=== PATIENT | male | born 1985 | race Caucasian/White ===

== ENCOUNTER 2016-10-10 09:02 | Emergency (ER) | payer OTHER ==
[2016-10-10 09:11] VITALS: BP 127/78; PULSE 70; RESP 16; TEMP 98.1; O2SAT 100
[2016-10-10] MEDS ORDERED: Lidocaine 5% Patch TD STA (09:45)
--- NOTE | 2016-10-10 09:45 | C.PDOC ---
History Of Present Illness 31 year old male presents to the ED with complaints of mid back pain greater on the right then the left side that began four hours prior to arrival. He states pain is exacerbated by movement and deep breathing. Patient states he awoke with symptoms that resolve with rest. He denies taking pain medications, trauma , or a history of chronic back pain. R>L MID BACK PAIN X 4 HOURS. PS AWOKE W SX. WORSE W MOVEMENT, DEEP BREATHING. RESOLVES W REST. NO PAIN MEDS TRIED. DENIES TRAUMA. DENIES HO CHRONIC BACK PAIN EXAM MILD DIST NONTOXIC BACK +SPASM W LOCAL TEND R MID BACK W REPRODUC PAIN. LIMITED ROM DUE TO PAIN. NO SPINAL TEND LUNGS CTA B/L NO WR/R NEURO INTACT SKIN NEG Time Seen by Provider: 10/10/16 09:30 Chief Complaint (Nursing): Chest Pain History Per: Patient History/Exam Limitations: no limitations Onset/Duration Of Symptoms: Hrs Current Symptoms Are (Timing): Still Present Quality Of Discomfort: "Pain" Previous Symptoms: denies: Back Pain, Chronic Pain Associated Symptoms: None Exacerbating Factor(s): Movement, Other (deep breathing ) Recent travel outside of the [place]: No Past Medical History Reviewed: Historical Data, Nursing Documentation, Vital Signs Vital Signs: Last Vital Signs Temp 98.1 F 10/10/16 09:05 Pulse 70 10/10/16 09:05 Resp 16 10/10/16 09:05 BP 127/78 10/10/16 09:05 Pulse Ox 100 10/10/16 10:25 - [facility] Procedures REMOVAL SUPERFIC FB EYE (09/25/13) Family History: States: Unknown Family Hx - Social History Hx Tobacco Use: Yes Hx Alcohol Use: No Hx Substance Use: No - Immunization History Hx Tetanus Toxoid Vaccination: Yes Hx Influenza Vaccination: No Hx Pneumococcal Vaccination: No Review Of Systems Constitutional: Negative for: Fever, Chills Cardiovascular: Negative for: Chest Pain, Palpitations Respiratory: Negative for: Cough, Shortness of Breath Gastrointestinal: Negative for: Nausea, Vomiting, Abdominal Pain, Diarrhea Musculoskeletal: Positive for: Back Pain (mid-back pain ) Physical Exam - Physical Exam Appears: Non-toxic, In Acute Distress (mild acute distress ) Skin: Warm, Dry Head: Atraumatic Eye(s): bilateral: Normal Inspection, PERRL, EOMI Oral Mucosa: Moist Neck: Supple Chest: Symmetrical, No Deformity Cardiovascular: Rhythm Regular Respiratory: Normal Breath Sounds (clear to ausculation bilaterally), No Rales, No Rhonchi, No Wheezing Back: No Vertebral Tenderness, Decreased ROM (limited ROM due to pain ), Muscle Spasm, No Paraspinal Tenderness, Other (localized tenderness to the right mid- back with reproducable pain. ) Extremity: Normal ROM, No Tenderness Neurological/Psych: Oriented x3, Normal Speech, Normal Cognition, Normal Cranial Nerves, Normal Motor, Normal Sensation, Normal Reflexes ED Course And Treatment ECG: Interpreted By Me ECG Rhythm: Sinus Rhythm ECG Interpretation: Normal Rate From EC O2 Sat by Pulse Oximetry: 100 (room air ) Pulse Ox Interpretation: Normal Progress - Re-Evaluation Re-evaluation Note: 10/10/16 10:53 FEELS BETTER ROM IMPROVED - Data Reviewed Data Reviewed: EKG, Old records Disposition Counseled Patient/Family Regarding: Diagnosis, Need For Followup, Rx Given - Disposition Referrals: [facility] [Outside] [facility] [Outside] Disposition: HOME/ ROUTINE Disposition Time: 10:54 Condition: IMPROVED Prescriptions: Cyclobenzaprine [Flexeril] 10 mg PO TID #15 tab Ibuprofen [Motrin] 600 mg PO Q6 #30 tab Lidocaine 5% [Lidoderm] 1 ea TD PRN PRN #10 patch PRN Reason: Pain, Moderate (4-7) Instructions: Back Pain (ED) Forms: Work Excuse Print Language: PASHTO - Clinical Impression Clinical Impression: Back pain - Scribe Statement The provider has reviewed the documentation as recorded by the Scribjosep Noble All medical record entries made by the Vickiibjosep were at my direction and personally dictated by me. I have reviewed the chart and agree that the record accurately reflects my personal performance of the history, physical exam, medical decision making, and the department course for this patient. I have also personally directed, reviewed, and agree with the discharge instructions and disposition.
[2016-10-10] MEDS ORDERED: Lidocaine 5% Patch TD ONE (09:49)
== END 2016-10-10 11:00 | disposition home or self-care (01) ==
LOC: C.ER 09:02
DX: M54.6 Pain in thoracic spine (principal)
CPT/HCPCS: 96372; 99284; J1885

== ENCOUNTER 2016-10-15 12:16 | Emergency (ER) | payer OTHER ==
[2016-10-15 12:43] VITALS: BP 146/80; PULSE 71; RESP 18; TEMP 97.9; O2SAT 98
[2016-10-15] MEDS ORDERED: Erythromycin 0.5% Ophth Oint 1 APPLIC/3.5 G OD STA (12:46)
--- NOTE | 2016-10-15 12:51 | C.PDOC ---
History Of Present Illness 31 year old male complains of right eyelid redness, swelling and irritation for 2 days. He additionally complains of low right back pain which is aching and non -radiating. Patient states he was heavy lifting at work yesterday which aggravated pain. Patient states he has been taking Advil for pain without relief. Denies any direct injury, urinary symptoms, numbness, weakness, abdominal pain. In regards to eye complaint, denies any visual changes or eye injury, does not wear glasses or contacts Time Seen by Provider: 10/15/16 12:36 Chief Complaint (Nursing): Abdominal Pain History Per: Patient History/Exam Limitations: no limitations Onset/Duration Of Symptoms: Days Current Symptoms Are (Timing): Still Present Severity: Moderate Recent travel outside of the [place]: No Past Medical History Reviewed: Historical Data, Nursing Documentation, Vital Signs Vital Signs: Last Vital Signs Temp 97.9 F 10/15/16 12:42 Pulse 71 10/15/16 12:42 Resp 18 10/15/16 12:42 BP 146/80 10/15/16 12:42 Pulse Ox 98 10/15/16 13:14 - Medical History PMH: No Chronic Diseases Surgical History: No Surg Hx - [facility] Procedures REMOVAL SUPERFIC FB EYE (09/25/13) Family History: States: Unknown Family Hx - Social History Hx Tobacco Use: Yes Hx Alcohol Use: No Hx Substance Use: No - Immunization History Hx Tetanus Toxoid Vaccination: Yes Hx Influenza Vaccination: No Hx Pneumococcal Vaccination: No Review Of Systems Constitutional: Negative for: Fever, Chills Eyes: Positive for: Other (right eyelid redness, swelling and irritation). Negative for: Vision Change Cardiovascular: Negative for: Chest Pain Respiratory: Negative for: Cough Gastrointestinal: Negative for: Abdominal Pain Genitourinary: Negative for: Dysuria, Frequency, Hematuria, Scrotal Pain Musculoskeletal: Positive for: Back Pain. Negative for: Leg Pain Skin: Negative for: Rash Neurological: Negative for: Weakness, Numbness, Headache, Dizziness Physical Exam - Physical Exam Appears: Non-toxic, No Acute Distress Skin: Warm, Dry, No Rash Head: Atraumatic, Normacephalic Eye(s): bilateral: PERRL, EOMI, right: Other (upper eyelid with erythematous nodule to mid eyelid margin, no purulent discharge), left: Normal Inspection Oral Mucosa: Moist Neck: Normal, Normal ROM, Supple Chest: Symmetrical Cardiovascular: Rhythm Regular Respiratory: Normal Breath Sounds, No Rales, No Rhonchi, No Wheezing Back: Normal Inspection (no rash, no bulging), No Vertebral Tenderness, No Decreased ROM, Paraspinal Tenderness (right lumbar) Extremity: Bilateral: Atraumatic, Normal Color And Temperature, Normal ROM Neurological/Psych: Oriented x3, Normal Speech, Normal Motor, Normal Sensation Gait: Steady ED Course And Treatment O2 Sat by Pulse Oximetry: 98 (room air) Pulse Ox Interpretation: Normal Medical Decision Making Medical Decision Making: Patient with right eyelid pain and swelling and exam consistent with hordeolum. Erythromycin ointment applied. Visual acuity obtained and WNL, no signs of injury or foreign body. Patient also has second complaint of back pain, stating he took the medications prescribed during last visit and continues to have pain. He requesting few days off from work. Toradol, Tylenol, and Valium ordered. Patient was advised to follow up with clinic or PCP. Disposition Counseled Patient/Family Regarding: Diagnosis, Need For Followup, Rx Given - Disposition Referrals: [facility] [Outside] [facility] [Outside] [facility] [Outside] Disposition: HOME/ ROUTINE Disposition Time: 13:00 Condition: IMPROVED Additional Instructions: Follow up with your primary medical doctor or clinic in 2-5 days for further evaluation. Apply eye ointment twice daily for one week. Take medications as prescribed and as needed for any back pain. Return to the emergency department at any time if symptoms worsen. You may call [facility] service for any assistance [phone]. Prescriptions: traMADol/Acetaminophen [Ultracet 325 MG-37.5 MG] 1 tab PO Q8 #15 tab Instructions: Karen (ED), Acute Low Back Pain (DC) Forms: [facility] (Czech), Work Excuse Print Language: [place] - POA Present On Arrival: None - Clinical Impression Clinical Impression: Hordeolum externum right upper eyelid, Back pain - PA / STRAPPER / Resident Statement MD/DO has reviewed & agrees with the documentation as recorded. - Scribe Statement The provider has reviewed the documentation as recorded by the Vickiibjosep Eli All medical record entries made by the Scribe were at my direction and personally dictated by me. I have reviewed the chart and agree that the record accurately reflects my personal performance of the history, physical exam, medical decision making, and the department course for this patient. I have also personally directed, reviewed, and agree with the discharge instructions and disposition.
[2016-10-15] MEDS ORDERED: Erythromycin 0.5% Ophth Oint 1 APPLIC/3.5 G ONE (12:53)
== END 2016-10-15 13:28 | disposition home or self-care (01) ==
LOC: C.ER 12:16
DX: H00.011 Hordeolum externum right upper eyelid (principal); M54.9 Dorsalgia, unspecified
CPT/HCPCS: 96372; 99285; J1885

== ENCOUNTER 2017-05-24 11:56 | Emergency (ER) | payer OTHER ==
[2017-05-24 12:01] VITALS: RESP 18
--- NOTE | 2017-05-24 12:13 | C.PDOC ---
History Of Present Illness 31 yo male c/o yellow penile discharge associated with dysuria for 3 days. Pt notes he had unprotected intercourse on Tuesday with a new partner. No h/o STDs. Denies testicular pain, abdominal pain, fever, back pain or other complains. Time Seen by Provider: 05/24/17 12:02 Chief Complaint (Nursing): Male Genitourinary History Per: Patient History/Exam Limitations: no limitations Onset/Duration Of Symptoms: Days Current Symptoms Are (Timing): Still Present Past Medical History Reviewed: Historical Data, Nursing Documentation, Vital Signs Vital Signs: Last Vital Signs Temp 98 F 05/24/17 13:39 Pulse 74 05/24/17 13:39 Resp 18 05/24/17 13:39 BP 129/82 05/24/17 13:39 Pulse Ox 97 05/24/17 17:10 - [facility] Procedures REMOVAL SUPERFIC FB EYE (09/25/13) Family History: States: No Known Family Hx - Social History Hx Tobacco Use: Yes Hx Alcohol Use: No Hx Substance Use: No - Immunization History Hx Tetanus Toxoid Vaccination: Yes Hx Influenza Vaccination: No Hx Pneumococcal Vaccination: No Review Of Systems Constitutional: Negative for: Fever Respiratory: Negative for: Cough, Shortness of Breath Gastrointestinal: Negative for: Vomiting Genitourinary: Positive for: Dysuria, Penile Discharge. Negative for: Scrotal Pain, Rash, Penile Pain Physical Exam - Physical Exam Appears: Non-toxic, No Acute Distress Skin: Normal Color, Warm, Dry, No Rash Head: Atraumatic, Normacephalic Eye(s): bilateral: Normal Inspection, EOMI Nose: Normal Oral Mucosa: Moist Neck: Normal ROM Chest: Symmetrical Respiratory: No Accessory Muscle Use Gastrointestinal/Abdominal: Soft, No Tenderness Back: No CVA Tenderness, No Vertebral Tenderness Neurological/Psych: Oriented x3, Normal Speech ED Course And Treatment O2 Sat by Pulse Oximetry: 97 Progress Note: GC/Chlamydia, Urine Culture and UA ordered and reviewed. Patient treated with IM Rocephin and PO Azithromycin. Patient advised to use protection for intercourse, and treat partner. Disposition - Disposition Referrals: Declan Mcnally MD [Staff Provider] - Disposition: HOME/ ROUTINE Disposition Time: 13:08 Condition: STABLE Additional Instructions: Follow up with your primary medical doctor or clinic in 2-5 days for further evaluation. Take medications as prescribed. Return to the emergency department at any time if symptoms persist or worsen. Instructions: Urethritis (DC) Forms: [facility] (Estonian) - Clinical Impression Clinical Impression: Urethritis - Scribe Statement The provider has reviewed the documentation as recorded by the Scribe (Rosario Rutledge) All medical record entries made by the Scribe were at my direction and personally dictated by me. I have reviewed the chart and agree that the record accurately reflects my personal performance of the history, physical exam, medical decision making, and the department course for this patient. I have also personally directed, reviewed, and agree with the discharge instructions and disposition.
[2017-05-24 12:51] LABS: SQUAMOUS EPITHIAL 2 /hpf (0-5); URINE BILIRUBIN NEGATIVE (NEGATIVE); URINE BLOOD 2+ (NEGATIVE); URINE CLARITY Hazy (Clear); URINE COLOR Yellow (YELLOW); URINE GLUCOSE (UA) NORMAL (Normal); URINE LEUKOCYTE ESTERASE 3+ Leu/uL (Negative); URINE NITRATE NEGATIVE (NEGATIVE); URINE PROTEIN NEGATIVE (NEGATIVE); URINE UROBILINOGEN NORMAL mg/dL (0.2-1.0)
[2017-05-24] MEDS ORDERED: cefTRIAXone (Rocephin) 250 mg Inj IM STA (13:04)
[2017-05-24 13:39] VITALS: BP 129/82; PULSE 74; TEMP 98
[2017-05-24 16:13] VITALS: O2SAT 97
== END 2017-05-24 13:40 | disposition home or self-care (01) ==
LOC: C.ER 11:56
DX: N34.2 Other urethritis (principal)
CPT/HCPCS: 81001; 87086; 87491; 87591; 96372; 99285; J0696